=== PATIENT | female | born 1980 | race Caucasian/White ===

== ENCOUNTER 2017-07-24 08:40 | Emergency (ER) | payer SELFPAY ==
[~2017-07-24] VITALS: Ht 162.6 cm; Wt 65.0 kg
[~2017-07-24 08:40] MED LIST: ALBU6.7H INH; SUBO8MIS SL
[2017-07-24 08:41] VITALS: BP 124/70; PULSE 79; RESP 18; TEMP 98.7; O2SAT 100
--- NOTE | 2017-07-24 09:05 | PD ---
HPI Chief Complaint: Oral / Dental Pain or Problem Time Seen by Provider: 09:04 Travel History International Travel<30 days: No Contact w/Intl Traveler<30days: No Traveled to known affect area: No History of Present Illness HPI 36-year-old female is emergency department with one week history of left lower jaw pain and swelling. Patient denies fever, chills or difficulty swallowing. Patient has large caries in the left lower jaw. Patient is been taking ibuprofen [id number] without improvement. Pain is now an 8 out of 10. It is worse with hot and cold exposure. Pain is localized to the #19 and # 18 teeth. She is allergic to amoxicillin and meperidine. PFSH Past Medical History Asthma: No Blood Disorders: No Bipolar Disorder: Yes Anxiety: Yes Depression: Yes Heart Rhythm Problems: No Cancer: No Cardiovascular Problems: No High Cholesterol: No Chemotherapy: No Chest Pain: No Congestive Heart Failure: No COPD: No Diminished Hearing: No Endocrine: No Genitourinary: No Immune Disorder: No Musculoskeletal: No Neurologic: No Psychiatric: Yes Reproductive: No Respiratory: Yes (bronchitis) Radiation Therapy: No Sleep Apnea: No ?: Not LMP: 07/19/17 Past Surgical History Other Surgery: Yes (ANKLE) Social History Alcohol Use: No Tobacco Use: Yes (PPD) Substance Use: No Allergies-Medications (Allergen,Severity, Reaction): Coded Allergies: amoxicillin (Unverified Allergy, Severe, Hives, 07/24/17) meperidine (Unverified Allergy, Severe, Itching, 07/24/17) Reported Meds & Prescriptions Reported Meds & Active Scripts Active Magic Mouthwash Adult Liq (Multi-Ingredient Mouthwash/Gargle) 120 Ml Susp 10 Ml SWISH-SPIT Q2HR Each 5mL contains: Nystatin 200,000units, Diphenhydramine 4.25mg, Viscous Lidocaine 10mg, Silverman syrup 0.8 mL Mapap Extra Strength (Acetaminophen) 500 Mg Tab 1,000 Mg PO Q4-6H PRN Ibuprofen 600 Mg Tab 600 Mg PO Q6H PRN Clindamycin (Clindamycin HCl) 150 Mg Cap 300 Mg PO Q6H 7 Days Review of Systems Except as stated in HPI: all other systems reviewed are Neg General / Constitutional: No: Fever Eyes: No: Visual changes HENT: Positive: Dental Difficulties, No: Headaches, Vertigo, Lightheadedness, Sore Throat, Rhinitis, Rhinorrhea, Congestion, Nosebleed, Neck Stiffness, Neck Pain, Gingival Bleeding, Ear Discharge, Earache Cardiovascular: No: Chest Pain or Discomfort Respiratory: No: Shortness of Breath Gastrointestinal: No: Abdominal Pain Genitourinary: No: Dysuria Musculoskeletal: No: Pain Skin: No Rash Neurologic: No: Weakness Psychiatric: No: Depression Endocrine: No: Polydipsia Hematologic/Lymphatic: No: Easy Bruising Physical Exam Narrative GENERAL: Patient appears in mild distress. SKIN: Warm and dry. Normal color. Normal turgor. No erythema. No rash. HEAD: Atraumatic. Normocephalic. EYES: Pupils equal and round. No scleral icterus. No injection or drainage. ENT: No nasal bleeding or discharge. Mucous membranes pink and moist. She has large caries to multiple teeth, but especially the #18 and a #19 teeth on the left. No significant gingival swelling or abscesses abscess. Patient is tender along the left lower jaw. TMs are clear bilaterally. There is no TMJ tenderness. There is clear. Airway is patent. NECK: Trachea midline. Supple and nontender without lymphadenopathy. CARDIOVASCULAR: Regular rate and rhythm. RESPIRATORY: No accessory muscle use. Clear to auscultation. Breath sounds equal bilaterally. MUSCULOSKELETAL: Extremities without clubbing, cyanosis, or edema. No obvious deformities. NEUROLOGICAL: Awake and alert. No obvious cranial nerve deficits. Motor grossly within normal limits. Five out of 5 muscle strength in the arms and legs. Normal speech. PSYCHIATRIC: Appropriate mood and affect; insight and judgment normal. Data Data Last Documented VS Vital Signs Date Time Temp Pulse Resp B/P (MAP) Pulse Ox O2 Delivery O2 Flow Rate FiO2 07/24/17 09:35 07/24/17 08:41 98.7 79 18 100 Room Air Orders Orders Clindamycin (Cleocin) (07/24/17 09:15) Ed Discharge Order (07/24/17 09:14) [facility] Medical Decision Making Medical Screen Exam Complete: Yes Emergency Medical Condition: Yes Differential Diagnosis Dental caries. Dental abscess. Dental pain. Narrative Course Patient is medically stable at time of exam. Patient is given first dose of clindamycin 300 mg by mouth. Patient is continued on clindamycin 300 mg 4 times a day 7 days. Patient is given ibuprofen 600 mg 4 times a day #40. Patient is given acetaminophen 500 mg 2 tabs every 6 hours when necessary. She is given Magic mouthwash 10 mL every 2 hours when necessary 120 mL with 2 refills. Dental resources information given. To follow with dentist as soon as possible. Diagnosis Primary Impression: Dental abscess Referrals: Dentist Patient Instructions: Dental Abscess (GEN), General Instructions Additional Instructions: Patient is given first dose of clindamycin 300 mg by mouth. Patient is continued on clindamycin 300 mg 4 times a day 7 days. Patient is given ibuprofen 600 mg 4 times a day #40. Patient is given acetaminophen 500 mg 2 tabs every 6 hours when necessary. She is given Magic mouthwash 10 mL every 2 hours when necessary 120 mL with 2 refills. Dental resources information given. To follow with dentist as soon as possible. Med/Other Pt SpecificInfo: Prescription(s) given Scripts Ihzmoayh-Tvdbpdcexazqhqb-Sasdeqodq Liq (Magic Mouthwash Adult Liq) 120 Ml Susp 10 ML SWISH-SPIT Q2HR for Mouth sores, #120 ML 2 Refills Each 5mL contains: Nystatin 200,000units, Diphenhydramine 4.25mg, Viscous Lidocaine 10mg, Silverman syrup 0.8 mL Prov: Sandie Olmos MD 07/24/17 Acetaminophen (Mapap Extra Strength) 500 Mg Tab 1000 MG PO Q4-6H Y for PAIN, #60 TAB 0 Refills Prov: Sandie Olmos MD 07/24/17 Ibuprofen (Ibuprofen) 600 Mg Tab 600 MG PO Q6H Y for Pain/Inflammation, #40 TAB 0 Refills Prov: Sandie Olmos MD 07/24/17 Clindamycin (Clindamycin) 150 Mg Cap 300 MG PO Q6H for Infection for 7 Days, #56 CAP 0 Refills Prov: Sandie Olmos MD 07/24/17 Disposition: 01 DISCHARGE HOME Condition: Stable Jarrod Manzo Jul 24, 2017 09:05
[2017-07-24] MEDS ORDERED: MAPA500T13 PO (09:10)
[2017-07-24] MEDS ORDERED: MAGICADU2 SWISH-SPIT (09:10)
[2017-07-24] MEDS ORDERED: IBUP-232 PO (09:10)
[2017-07-24] MEDS ORDERED: CLIN1CAP5 PO (09:10)
[2017-07-24] MEDS ORDERED: CLINDAMYCIN 150 MG CAP PO ONE (09:15)
== END 2017-07-24 09:36 | disposition home or self-care (01) ==
LOC: NEPD 08:40
DX: K04.7 Periapical abscess without sinus (principal); F31.9 Bipolar disorder, unspecified; F41.9 Anxiety disorder, unspecified; F17.200 Nicotine dependence, unspecified, uncomplicated; Z79.899 Other long term (current) drug therapy
CPT/HCPCS: 99283

== ENCOUNTER 2018-03-10 13:04 | Emergency (ER) | payer SELFPAY ==
[~2018-03-10 13:04] MED LIST changes: -ALBU6.7H INH; +CLIN150C14 PO; +IBUP-232 PO; +MAGICADU2 SWISH-SPIT; +MAPA500T13 PO; -SUBO8MIS SL
[2018-03-10 13:10] VITALS: BP 139/73; PULSE 77; RESP 17; TEMP 98.8; O2SAT 99
[2018-03-10] MEDS ORDERED: CLIN150C14 PO (15:00)
[2018-03-10] MEDS ORDERED: ACETAMINOPHEN/HYDROcodone 325 MG/5 MG TAB PO ONE (15:00)
[2018-03-10] MEDS ORDERED: CLINDAMYCIN PHOS 600 MG/4 ML VIAL IM ONE (15:00)
[2018-03-10] MEDS ORDERED: MAGICADU2 SWISH-SPIT (15:00)
[2018-03-10] MEDS ORDERED: HYDR-3516 PO (15:00)
[2018-03-10] MEDS ORDERED: DICL75TA PO (15:00)
--- NOTE | 2018-03-10 15:12 | PD ---
HPI Chief Complaint: Oral / Dental Pain or Problem Time Seen by Provider: 14:43 Travel History International Travel<30 days: No Contact w/Intl Traveler<30days: No Traveled to known affect area: No History of Present Illness HPI 37-year-old female that presents to the ED for evaluation of right lower dental pain. Per patient she has had pain and swelling for the past 3 days. She has been taking qfdj-tul-mitbfob remedies with minimal relief. Per patient the pain is 7 out of 10. Comes and goes. She has a history of bad dentition has been here in the past for this. Denies any other medical issues. Allergies to amoxicillin and meperidine. No urinary or bowel movement issues. No fevers chills or sweats. Has not seen anybody for this. Has no dentist. PFSH Past Medical History Asthma: No Blood Disorders: No Bipolar Disorder: Yes Anxiety: Yes Depression: Yes Heart Rhythm Problems: No Cancer: No Cardiovascular Problems: No High Cholesterol: No Chemotherapy: No Chest Pain: No Congestive Heart Failure: No COPD: No Diminished Hearing: No Endocrine: No Genitourinary: No Immune Disorder: No Musculoskeletal: No Neurologic: No Psychiatric: Yes Reproductive: No Respiratory: Yes (bronchitis) Radiation Therapy: No Sleep Apnea: No ?: Not Past Surgical History Other Surgery: Yes (ANKLE) Social History Alcohol Use: No Tobacco Use: Yes (PPD) Substance Use: No Allergies-Medications (Allergen,Severity, Reaction): Coded Allergies: amoxicillin (Unverified Allergy, Severe, Hives, 03/10/18) meperidine (Unverified Allergy, Severe, Itching, 03/10/18) Reported Meds & Prescriptions Reported Meds & Active Scripts Active Diclofenac Sodium DR (Diclofenac Sodium) 75 Mg Tabdr 75 Mg PO BID PRN Hydrocodone-Acetaminophen 5-325 mg Tab 1 Tab PO Q6H PRN Magic Mouthwash Adult Liq (Multi-Ingredient Mouthwash/Gargle) 120 Ml Susp 10 Ml SWISH-SPIT Q2HR Each 5mL contains: Nystatin 200,000units, Diphenhydramine 4.25mg, Viscous Lidocaine 10mg, Silverman syrup 0.8 mL Clindamycin (Clindamycin HCl) 150 Mg Cap 300 Mg PO Q6H 10 Days Mapap Extra Strength (Acetaminophen) 500 Mg Tab 1,000 Mg PO Q4-6H PRN Ibuprofen 600 Mg Tab 600 Mg PO Q6H PRN Review of Systems Except as stated in HPI: all other systems reviewed are Neg Physical Exam Narrative GENERAL: SKIN: Warm and dry. HEAD: Atraumatic. Normocephalic. EYES: Pupils equal and round. No scleral icterus. No injection or drainage. ENT: No nasal bleeding or discharge. Mucous membranes pink and moist. Tongue is midline. No blood deviation. Dental: Patient has bad dentition noted throughout the mouth. More of the pain located on the right lower child were in the first molar as well as the second premolar are tender to touch as well as Cavities on them. Some soft tissue swelling noted. Patient does have bad dentition on the left side as well. NECK: Trachea midline. No JVD. CARDIOVASCULAR: Regular rate and rhythm. RESPIRATORY: No accessory muscle use. Clear to auscultation. Breath sounds equal bilaterally. GASTROINTESTINAL: Abdomen soft, non-tender, nondistended. Hepatic and splenic margins not palpable. MUSCULOSKELETAL: Extremities without clubbing, cyanosis, or edema. No obvious deformities. NEUROLOGICAL: Awake and alert. No obvious cranial nerve deficits. Motor grossly within normal limits. Five out of 5 muscle strength in the arms and legs. Normal speech. PSYCHIATRIC: Appropriate mood and affect; insight and judgment normal. Data Data Last Documented VS Vital Signs Date Time Temp Pulse Resp B/P (MAP) Pulse Ox O2 Delivery O2 Flow Rate FiO2 03/10/18 13:10 98.8 77 17 139/73 (95) 99 Orders Orders Clindamycin Inj (Cleocin Inj) (03/10/18 15:00) Acetamin-Hydrocod 325-5 Mg ([place] 5-325 (03/10/18 15:00) Ed Discharge Order (03/10/18 15:06) [facility] Medical Decision Making Medical Screen Exam Complete: Yes Emergency Medical Condition: Yes Medical Record Reviewed: Yes Differential Diagnosis Dental pain versus dentalgia versus dental abscess Narrative Course 37-year-old female that presents to the ED for evaluation of dental pain. Patient was properly examined and was found to have signs and symptoms consistent with dental abscess. At this time appears to be no drainable. Will treat with antibiotics. Given pain medication as needed. Follow-up with dentist. Given dental referral. See ED if worsening symptoms. Diagnosis Primary Impression: Dental infection Patient Instructions: General Instructions, Narcotic given in the ED Additional Instructions: Take medications as prescribed. Follow-up with dentist. He can follow with the health department as they do have some dentistry available. See ED for any worsening symptoms. Do not drink or drive while taking pain medication. Apply ice or heat as needed for pain Med/Other Pt SpecificInfo: Prescription(s) given Scripts Diclofenac Sodium DR (Diclofenac Sodium DR) 75 Mg Tabdr 75 MG PO BID Y for PAIN SCALE 1 TO 10, #20 TAB 0 Refills Prov: Sebastien Ramirez MD 03/10/18 Hydrocodone-Acetaminophen (Hydrocodone-Acetaminophen) 5-325 mg Tab 1 TAB PO Q6H Y for PAIN, #12 TAB 0 Refills Prov: Sebastien Ramirez MD 03/10/18 Divzbslo-Sxxorplesydczst-Fbkmjadtc Liq (Magic Mouthwash Adult Liq) 120 Ml Susp 10 ML SWISH-SPIT Q2HR for Mouth sores, #120 ML 2 Refills Each 5mL contains: Nystatin 200,000units, Diphenhydramine 4.25mg, Viscous Lidocaine 10mg, Silverman syrup 0.8 mL Prov: Sebastien Ramirez MD 03/10/18 Clindamycin (Clindamycin) 150 Mg Cap 300 MG PO Q6H for Infection for 10 Days, #80 CAP 0 Refills Prov: Sebastien Ramirez MD 03/10/18 Disposition: 01 DISCHARGE HOME Condition: Stable Michael Wu Mar 10, 2018 15:12
== END 2018-03-10 15:49 | disposition home or self-care (01) ==
LOC: NEPK 13:04
DX: K04.7 Periapical abscess without sinus (principal); F17.200 Nicotine dependence, unspecified, uncomplicated; F31.9 Bipolar disorder, unspecified; F41.9 Anxiety disorder, unspecified
CPT/HCPCS: 96372